=== PATIENT | male | born 1980 | race Caucasian/White ===

== ENCOUNTER 2019-03-16 09:06 | Emergency (ER) | payer OTHER ==
--- OUTSIDE RECORDS SUMMARY | 2019-03-16 09:22 | XMS REPORT | Summary of Care ---
:1980 Author Organization [facility] Address [address] [facility] [place] [address] Care Team Providers Name Role Phone Brdoerick Knight MD Primary Care Provider Reason for Visit Reason Comments Conjunctivitis Both eyes red,itchy and draining x 3-4 days. Dysuria Painful urination for a few days. Earache Pt. states "no better, no worse". Encounter Details Date Type Department Care Team Description 03/08/2019 Office Visit [facility] Broderick Knight MD Dysuria (Primary Dx); [address] Acute bacterial conjunctivitis, unspecified laterality; [place] [address] Acute bilateral otitis media [phone] [place] [address] Allergies No Known Allergiesdocumented as of this encounter (statuses as of 03/08/2019) Medications Medication Sig Dispensed Refills Start Date End Date Status levofloxacin Take 1 Tab by 10 Tab 0 03/02/2019 Active (LEVAQUIN) 500 MG mouth DAILY 9 Oral Tab 0700 on Empty Stomach for [address] 2 Drops 10 mL 0 03/08/2019 Active (BLEPH-10) 10 % in both eyes Ophthalmic Solution EVERY THREE HOURS. phenazopyridine Take 1 Tab by 6 Tab 0 03/08/2019 Active (PYRIDIUM) 100 MG mouth THREE Oral Tab TIMES DAILY. moxifloxacin (AVELOX) Take 1 Tab by 10 Tab 0 03/02/2019 Discontinued 400 MG Oral Tab mouth DAILY 9 for 10 days. 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 documented as of this encounter Last Filed Vital Signs Vital Sign Reading Time Taken Comments Blood Pressure 140/90 03/08/2019 10:39 AM EDT Pulse 65 03/08/2019 10:39 AM EDT Temperature 36.3 03/08/2019 10:39 AM EDT C (97.4 F) Respiratory Rate - - Oxygen Saturation 100% 03/08/2019 10:39 AM EDT Inhaled Oxygen Concentration - - Weight 70.1 kg (154 lb 8 oz) 03/08/2019 10:39 AM EDT Height 176.5 cm (5' 9.5") 03/08/2019 10:39 AM EDT Body Mass Index 22.49 03/08/2019 10:39 AM EDT documented in this encounter Progress Notes Broderick Knight MD - 03/08/2019 10:20 AM EDT PATIENT: Reymundo Gallo : 1980 DATE OF SERVICE: 03/08/2019 CHIEF COMPLAINT: Chief Complaint Patient presents with Conjunctivitis Both eyes red,itchy and draining x 3-4 days. Dysuria Painful urination for a few days. Earache Pt. states "no better, no worse". Subjective HISTORY OF PRESENT ILLNESS: Reymundo Gallo is a 38-y.o. male. Patient is here today with several different concerns. The past few days he has reported itching of both eyes greater on the right side. Some redness noted. Drainage from both eyes. Denies any fevers or chills. Denies any trauma. Denies any foreign body. He continues to have some ear discomfort. He has 3 more days left of Levaquin. No better or worse. Cough reported as improved. Additionally for the past 3 to 4 days he has had issues with dysuria. Denies increased urine frequency. Denies any drainage. No abdominal pain. Again he is currently on Levaquin. Past medical, surgical, family and social history reviewed and updated. No significant changes noted. History reviewed. No pertinent past medical history. Patient Active Problem List Diagnosis Axillary hyperhidrosis Social anxiety disorder Hemorrhoids Family History Problem Relation Age of Onset Hypertension Mother Current Outpatient Medications Medication Sig levofloxacin (LEVAQUIN) 500 MG Oral Tab Take 1 Tab by mouth DAILY 0700 on Empty Stomach for 10 days. phenazopyridine (PYRIDIUM) 100 MG Oral Tab Take 1 Tab by mouth THREE TIMES DAILY. sulfacetamide (BLEPH-10) 10 % Ophthalmic Solution Place 2 Drops in both eyes EVERY THREE HOURS. No current facility-administered medications for this visit. No Known Allergies Social History Socioeconomic History Marital status: Spouse name: Not on file Number of children: Not on file Years of education: Not on file Highest education level: Not on file Occupational History Not on file Social Needs Financial resource strain: Not on file Food insecurity: Worry: Not on file Inability: Not on file Transportation needs: Medical: Not on file Non-medical: Not on file Tobacco Use Smoking status: Former Smoker Smokeless tobacco: Never Used Substance and Sexual Activity Alcohol use: Yes Comment: 2 beers a week Drug use: Not on file Comment: Refuses to answer Sexual activity: Not on file Lifestyle Physical activity: Days per week: Not on file Minutes per session: Not on file Stress: Not on file Relationships Social connections: Talks on phone: Not on file Gets together: Not on file Attends yazidism service: Not on file Active member of club or organization: Not on file Attends meetings of clubs or organizations: Not on file Relationship status: Not on file Intimate partner violence: Fear of current or ex partner: Not on file Emotionally abused: Not on file Physically abused: Not on file Forced sexual activity: Not on file Other Topics Concern Not on file Social History Narrative Unemployed REVIEW OF SYSTEMS: Review of Systems Constitutional: Negative for chills, fever, malaise/fatigue and weight loss. HENT: Positive for congestion and ear pain. Negative for hearing loss, sinus pain and sore throat. Eyes: Positive for discharge and redness. Negative for blurred vision, double vision, photophobia and pain. Itching eyes Respiratory: Negative for cough, shortness of breath and wheezing. Cardiovascular: Negative for chest pain, palpitations and leg swelling. Gastrointestinal: Negative for abdominal pain, constipation, diarrhea, heartburn , nausea and vomiting. Genitourinary: Positive for dysuria. Negative for flank pain, frequency, hematuria and urgency. Musculoskeletal: Negative for back pain, joint pain, myalgias and neck pain. Skin: Negative for rash. Neurological: Negative for dizziness, tremors, focal weakness and headaches. (-) paresthesias Endo/Heme/Allergies: Does not bruise/bleed easily. Psychiatric/Behavioral: Negative for depression, memory loss and suicidal ideas. The patient is not nervous/anxious and does not have insomnia. Objective PHYSICAL EXAM: VITALS: BP 140/90 (BP Location: Left arm, Patient Position: Sitting) | Pulse 65 | Temp 97.4 F(36.3 C) (Tympanic) | Ht 5' 9.5" (1.765 m) | Wt 154 lb 8 oz (70.1 kg) | SpO2 100% | BMI 22.49 kg/m Body mass index is 22.49 kg/m. Physical Exam Constitutional: He is oriented to person, place, and time. He appears well- developed and well-nourished. HENT: Head: Normocephalic and atraumatic. Bilateral tympanic membranes erythematous with air-fluid level Boggy turbinates Postnasal drip noted Eyes: Pupils are equal, round, and reactive to light. EOM are normal. Right eye exhibits discharge. Left eye exhibits discharge. Conjunctiva erythematous with purulent drainage Neck: Normal range of motion. Neck supple. Cardiovascular: Normal rate, regular rhythm and normal heart sounds. Pulmonary/Chest: Effort normal. No respiratory distress. He has no wheezes. Abdominal: Soft. There is no tenderness. There is no rebound and no guarding. Musculoskeletal: Normal range of motion. Lymphadenopathy: He has cervical adenopathy. Neurological: He is alert and oriented to person, place, and time. Nursing note and vitals reviewed. Results for orders placed or performed in visit on 03/08/19 URINE DIP CLINITEK (AMB POCT) Result Value Ref Range URINE GLUCOSE (POCT) Negative Negative mg/dl URINE BILIRUBIN (POCT) Negative Negative Urine Ketones (POCT) Negative Negative URINE SPECIFIC GRAVITY (POCT) 1.015 1.005 - 1.030 URINE BLOOD (POCT) Negative Negative URINE PH (POCT) 7.0 5.0 - 8.0 URINE PROTEIN (POCT) Negative Negative mg/dl URINE UROBILINOGEN (POCT) 0.2 0.2 - 1.0 mg/dl URINE NITRITES (POCT) Negative Negative URINE LEUKOCYTES (POCT) Negative Negative Cells/uL ASSESSMENT / IMPRESSION: ICD-9-CM ICD-10-CM 1. Dysuria 788.1 R30.0 URINE DIP CLINITEK (AMB POCT) URINE CULTURE (C&S) URINE CULTURE (C&S) 2. Acute bacterial conjunctivitis, unspecified laterality 372.03 H10.30 3. Acute bilateral otitis media 382.9 H66.93 Plan 1. Dysuria. Suspect urinary tract infection despite normal urine dip. He is currently on Levaquin which may skew the results. Obtain urine culture. Recommendations will follow. 2. Conjunctivitis. Start Bleph-10. Application to both eyes every 3 hours for the next 7 to 10 days. 3. Bilateral otitis media. Some improvement with inspection. Complete antibiotics as suggested. Consider ENT evaluation. Author: Broderick Knight MD 03/08/2019 11:19 documented in this encounter Plan of Treatment Name Type Priority Associated Diagnoses Date/Time URINE CULTURE (C&S) Lab Routine Dysuria 03/08/2019 10:44 AM EDT Name Type Priority Associated Diagnoses Order Schedule URINE CULTURE (C&S) Lab Routine Dysuria 1 Occurrences starting 03/08/2019 until 09/04/2019 Health Maintenance Due Date Last Done Comments HIV SCREENING 1996 INFLUENZA VACCINE (#1) 2019 DEPRESSION SCREENING 01/11/2020 01/10/2019 HPV IMMUNIZATION SERIES Aged Out No longer eligible based on patient's age to complete this topic MENINGOCOCCAL VACCINE IMM Aged Out No longer eligible based on patient's age to complete this topic PNEUMOCOCCAL 0-64 YRS Aged Out No longer eligible based on patient's age to complete this topic documented as of this encounter Procedures Procedure Name Priority Date/Time Associated Diagnosis Comments URINE DIP CLINITEK Routine 03/08/2019 10:44 AM Dysuria Results for this (AMB POCT) EDT procedure are in the results section. documented in this encounter Results URINE DIP CLINITEK (AMB POCT) (03/08/2019 10:44 AM EDT) URINE GLUCOSE (POCT) Negative Negative mg/dl [facility] POCT URINE BILIRUBIN Negative Negative [facility] (POCT) POCT Urine Ketones (POCT) Negative Negative [facility] POCT URINE SPECIFIC 1.015 1.005 - 1.030 [facility] GRAVITY (POCT) POCT URINE BLOOD (POCT) Negative Negative [facility] POCT URINE PH (POCT) 7.0 5.0 - 8.0 [facility] POCT URINE PROTEIN (POCT) Negative Negative mg/dl [facility] POCT URINE UROBILINOGEN 0.2 0.2 - 1.0 mg/dl [facility] (POCT) POCT URINE NITRITES (POCT) Negative Negative [facility] POCT URINE LEUKOCYTES Negative Negative Cells/uL [facility] (POCT) POCT Specimen Urine Performing Organization Address City/State/[facility] [place] Phone Number [facility] [address] [place] [address] documented in this encounter Visit Diagnoses Diagnosis Dysuria - Primary Acute bacterial conjunctivitis, unspecified laterality Acute bilateral otitis media Unspecified otitis media documented in this encounter documented as of this encounter
--- OUTSIDE RECORDS SUMMARY | 2019-03-16 09:22 | XMS REPORT | Summary of Care ---
:1980 Author Organization [facility] Address [address] [facility] [place] [address] Care Team Providers Name Role Phone Broderick Knight MD Primary Care Provider Reason for Visit Reason Comments Earache c/o bilat earaches on / off x 1 month. States hearing is less. Has been on a couple different antibiotics with little relief. Encounter Details Date Type Department Care Team Description 03/02/2019 Office Visit [facility] Broderick Knight MD Acute bilateral otitis [address] media (Primary Dx) [place] [address] [address] [place] [address] [phone] Allergies No Known Allergiesdocumented as of this encounter (statuses as of 03/02/2019) Medications Medication Sig Dispensed Refills Start Date End Date Status moxifloxacin Take 1 Tab 10 Tab 0 03/02/2019 03/12/2019 Active (AVELOX) 400 MG Oral by mouth Tab DAILY for 10 days. 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 Social anxiety disorder 01/10/2019 Hemorrhoids 01/10/2019 documented as of this encounter (statuses as of 03/02/2019) Social History Tobacco Use Types Packs/Day Years [...] Sign Reading Time Taken Comments Blood Pressure 128/88 03/02/2019 10:01 AM EDT Pulse 73 03/02/2019 10:01 AM EDT Temperature - - Respiratory Rate - - Oxygen Saturation 99% 03/02/2019 10:01 AM EDT Inhaled Oxygen Concentration - - Weight 68.4 kg (150 lb 12.8 oz) 03/02/2019 10:01 AM EDT Height - - Body Mass Index 21.95 02/08/2019 2:43 PM EDT documented in this encounter Progress Notes Broderick Knight MD - 03/02/2019 10:00 AM EDT PATIENT: Reymundo Gallo : 1980 DATE OF SERVICE: 03/02/2019 CHIEF COMPLAINT: Chief Complaint Patient presents with Earache c/o bilat earaches on / off x 1 month. States hearing is less. Has been on a couple different antibiotics with little relief. Subjective HISTORY OF PRESENT ILLNESS: Reymundo Gallo is a 38-y.o. male. Patient is here today with persistent bilateral ear pain. Reports some decreased hearing. Symptomsmore prominent on the left. Was recently treated for bilateral otitis media. Completed 2 courses of antibiotics. No clinical improvement. No fevers or chills. He reports some productive green sputum with cough. No shortness of breath or wheezing. Denies any abdominal pain. No sick contacts. He is a former smoker History reviewed. No pertinent past medical history. Patient Active Problem List Diagnosis Axillary hyperhidrosis Social anxiety disorder Hemorrhoids Family History Problem Relation Age of Onset Hypertension Mother Current Outpatient Medications Medication Sig moxifloxacin (AVELOX) 400 MG Oral Tab Take 1 Tab by mouth DAILY for 10 days. No current facility-administered medications for this visit. [...] file Gets together: Not on file Attends rastafarian service: Not on file Active member of [...] malaise/fatigue and weight loss. HENT: Positive for congestion, ear pain and hearing loss. Negative for sinus pain and sore throat. Eyes: Negative for blurred vision, double vision, photophobia and pain. (-) vision changes Respiratory: Positive for cough and sputum production. Negative for shortness of breath and wheezing. Cardiovascular: Negative for chest pain, palpitations and leg swelling. Gastrointestinal: Negative for abdominal pain, constipation, diarrhea, heartburn , nausea and vomiting. Genitourinary: Negative for dysuria, frequency and urgency. Musculoskeletal: Negative for back pain, joint pain, myalgias and neck pain. Skin: Negative for rash. Neurological: Negative for dizziness, tremors, focal weakness and headaches. (-) paresthesias Endo/Heme/Allergies: Does not bruise/bleed easily. Psychiatric/Behavioral: Negative for depression, memory loss and suicidal ideas. The patient is not nervous/anxious and does not have insomnia. Objective PHYSICAL EXAM: VITALS: BP 128/88 | Pulse 73 | Wt 150 lb 12.8 oz (68.4 kg) | SpO2 99% | BMI 21.95 kg/m Body mass index is 21.95 kg/m. Physical Exam Constitutional: He appears well-developed and well-nourished. No distress. HENT: Head: Normocephalic and atraumatic. Tympanic membranes dull and retracted. Left tympanic membrane erythematous at base. Air-fluid level appreciated Eyes: Pupils are equal, round, and reactive to light. Conjunctivae and EOM are normal. Neck: Normal range of motion. Neck supple. Cardiovascular: Normal rate, regular rhythm and normal heart sounds. No murmur heard. Pulmonary/Chest: Effort normal. No respiratory distress. He has no wheezes. Transmitted sounds bilaterally Abdominal: Soft. Lymphadenopathy: He has cervical adenopathy. Skin: Skin is warm. Nursing note and vitals reviewed. ASSESSMENT / IMPRESSION: ICD-9-CM ICD-10-CM 1. Acute bilateral otitis media 382.9 H66.93 Plan 1. Persistent bilateral otitis media. Failed on 2 courses of antibiotics. Will administer Avelox 400 mg daily for the next 10 days. Consider use of decongestants. Encourage adequate fluid hydration. Ibuprofen for discomfort. Follow-up as needed. Author: Broderick Knight MD 03/02/2019 10:23 documented in this encounter Plan of Treatment Health Maintenance Due Date Last Done Comments [...] this topic documented as of this encounter Results Not on filedocumented in this encounter Visit Diagnoses Diagnosis Acute bilateral otitis media - Primary Unspecified otitis media documented in this encounter documented as of this encounter"
--- NOTE | 2019-03-16 10:49 | ED ---
Throat Pain/Nasal Congestion - HPI Summary HPI Summary: Patient is a 39-year-old male who presents emergency department for ongoing ear fullness 6 weeks. Patient states he has been treated with numerous antibiotics without improvement. Patient states he now has redness to his eyes and photosensitivity. He also notes this area without penile discharge or hematuria. Patient denies fever, headache, chest pain, shortness of breath, cough, abdominal pain, vomiting, diarrhea, joint pain or swelling. Patient denies past medical history. Does not wear contact lenses. Patient states that he recently finished an antibiotic for possible UTI without improvement of symptoms. Patient notes he was also prescribed an eyedrop without improvement. Denies history of seasonal allergies. Symptoms are [id number] in severity. No current modifying factors. - History of Current Complaint Chief Complaint: EDEyeProblem Time Seen by Provider: 03/16/19 10:47 Hx Obtained From: Patient - Allergies/Home Medications Allergies/Adverse Reactions: Allergies Allergy/AdvReac Type Severity Reaction Status Date / Time No Known Allergies Allergy Verified 03/16/19 09:11 Home Medications: Home Medications Sulfacetamide 10 % OPTH.CLAYTON* [Sulamyd 10% Opth*] 1 drop BOTH EYES Q2HR 03/16/19 [History Confirmed 03/16/19] PMH/Surg Hx/FS Hx/Imm Hx Previously Healthy: Yes Infectious Disease History: No Infectious Disease History: Denies: Traveled Outside the [place] in Last 30 Days - Family History Known Family History: Positive: Non-Contributory - Social History Occupation: Employed Part-time Lives: With Family Review of Systems Constitutional: Negative Negative: Fever, Chills Positive: Photophobia, Erythema Positive: Other - Ear fullness Cardiovascular: Negative Respiratory: Negative Gastrointestinal: Negative Positive: dysuria. Negative: flank pain, hematuria Musculoskeletal: Negative Negative: Arthralgia Skin: Negative Negative: Rash Neurological: Negative All Other Systems Reviewed And Are Negative: Yes Physical Exam Triage Information Reviewed: Yes Vital Signs On Initial Exam: Initial Vitals Temp Pulse Resp BP Pulse Ox 99.4 F 74 14 142/85 98 03/16/19 09:08 03/16/19 09:08 03/16/19 09:08 03/16/19 09:08 03/16/19 09:08 Vital Signs Reviewed: Yes Appearance: Positive: Well-Appearing - Pt. sitting on bed in NAD. Wearing sunglasses. Talkative. Skin: Positive: Warm, Dry Head/Face: Positive: Normal Head/Face Inspection Eyes: Positive: EOMI, AMY, Other: - Mild-moderate noted to bilateral conjuncitva. Anterior chambers clear. No drainage. EOMI without pain. No surrouding erythema or edema. ENT: Positive: Pharynx normal, Other - Air fluid level bilaterally without erythema to TM. No mastoid tenderness bilaterally.. Negative: Tonsillar swelling, Tonsillar exudate Neck: Positive: Supple, Nontender, No Lymphadenopathy. Negative: Nuchal Rigidity Respiratory/Lung Sounds: Positive: Clear to Auscultation, Breath Sounds Present Cardiovascular: Positive: Normal, RRR Abdomen Description: Positive: Nontender, Soft. Negative: CVA Tenderness (R), CVA Tenderness (L) Musculoskeletal: Positive: Normal, Strength/ROM Intact Neurological: Positive: Normal, CN Intact II-III Psychiatric: Positive: Affect/Mood Appropriate Diagnostics - Vital Signs Vital Signs Temp Pulse Resp BP Pulse Ox 03/16/19 09:08 99.4 F 74 14 142/85 98 - Laboratory Result Diagrams: 03/16/19 11:10 03/16/19 11:10 Lab Statement: Any lab studies that have been ordered have been reviewed, and results considered in the medical decision making process. EENT Course/Dx - Course Course Of Treatment: Patient presenting with symptoms of eye injection, photosensitivity, ear fullness and dysuria. Patient has been on Augmentin, Zithromax, Levaquin and Bleph-10 since the symptoms started without improvement. He is afebrile with stable vital signs. Basic blood work, urinalysis and GC chlamydia urine ordered. Blood work is unremarkable including negative CRP and CBC. Urinalysis is completely negative. Pending gonorrhea and chlamydia. Potentially reactive arthritis patient does not have joint pian and has a normal CRP. Case discussed with Dr. Huerta who has no further recommendations at this time. Given ongoing conjunctivitis and photosensitivity will refer to ophthalmology for further evaluation. I was able to schedule pt. an appointment tomorrow at 8 AM for further evaluation of eye injection and photosensitivity. Patient is agreeable with this plan. He will also follow-up with PCP as well. - Differential Diagnoses Differential Diagnoses: Allergic Rhinitis, Conjunctivitis, Keratitis, Otitis Media, Uveitis - Diagnoses Provider Diagnoses: Conjunctivitis, Dysuria Discharge ED - Sign-Out/Discharge Documenting (check all that apply): Patient Departure Patient Received Moderate/Deep Sedation with Procedure: No - Discharge Plan Condition: Good Disposition: HOME Patient Education Materials: Dysuria (ED), Conjunctivitis (ED) Referrals: Broderick Knight MD [Primary Care Provider] - Chato Beckford MD [Medical Doctor] - Additional Instructions: Dr. Beckford's office will see you tomorrow, 03/17/19, at 8:00am Return to ER sooner if symptoms change or worsen - Billing Disposition and Condition Condition: GOOD Disposition: Home - Attestation Statements Provider Attestation: I was available for consult. This patient was seen by the JURGEN. The patient was not presented to, seen by, or examined by me. Feliciano Huerta MD
[2019-03-16 11:21] LABS: ABS Eosinophils 0.1 10^3/ul (0-0.6); ABS Lymphocytes 1.9 10^3/ul (1.0-4.8); ABS Monocytes 0.4 10^3/ul (0-0.8); ABS Neutrophils 2.8 10^3/ul (1.5-7.7); Eosinophil % 2.2 %; Hematocrit 43 % (42-52); Hemoglobin 14.7 g/dL (14.0-18.0); Mean Corpuscular HGB Conc 34 g/dL (31-36); Mean Corpuscular Hemoglobin 31 pg (27-31); Mean Corpuscular Volume 90 fL (80-94); Mean Platelet Volume 7.8 fL (7.4-10.4); Nucleated Red Blood Cells % 0.1; Platelet Count 219 10^3/uL (150-450); Red Blood Count 4.76 10^6 /uL (4.18-5.48); Red Cell Distribution Width 14 % (10-15); White Blood Count 5.4 10^3/uL (3.5-10.8)
[2019-03-16 11:47] LABS: Albumin 4.4 g/dL (3.2-5.2); Albumin/Globulin Ratio 2.2 (1-3); BUN/Creatinine Ratio 22.5 (8-20); CRP High Sensitivity 0.34 mg/L (<2.00); Calcium 9.2 mg/dL (8.6-10.3); EGFR African American 115.8 (>60); EGFR Non-African American 95.7 (>60); Potassium 4.2 mmol/L (3.5-5.0); Total Bilirubin 0.7 mg/dL (0.2-1.0); Total Protein 6.4 g/dL (6.4-8.9)
[2019-03-16 12:58] LABS: Urine Appearance Clear; Urine Bilirubin Negative (Negative); Urine Blood Negative (Negative); Urine Color Yellow; Urine Glucose Negative (Negative); Urine Ketones Negative (Negative); Urine Nitrite Negative (Negative); Urine Protein Negative (Negative); Urine Urobilinogen Negative (Negative)
[2019-03-16 13:28] VITALS: BP 124/84
[2019-03-17 13:46] LABS: Chlamydia trachomatis NAA Negative (Negative); Neisseria gonorrhoeae (GC) NAA Negative (Negative)
== END 2019-03-16 13:46 | disposition home or self-care (01) ==
LOC: ED 09:06
DX: H10.9 Unspecified conjunctivitis (principal); R30.0 Dysuria
CPT/HCPCS: 36415; 71046; 80053; 81003; 85025; 86141; 87491; 87591; 99282